=== PATIENT | female | born 1970 | race Hispanic/Latino ===

== ENCOUNTER 2023-06-26 15:25 | Emergency (ER) | payer OTHER, SELFPAY ==
[2023-06-26] MEDS ORDERED: Ketorolac Tromethamine 30 MG/ML VIAL ONE (18:05)
[2023-06-26] MEDS ORDERED: Dexameth. Sod Phosp. 10 MG/ML (CHEMO USE ONLY) ONE (18:10)
== END 2023-06-26 18:36 | disposition home or self-care (01) ==
LOC: ERS 15:25
DX: M54.31 Sciatica, right side (principal); F17.210 Nicotine dependence, cigarettes, uncomplicated
CPT/HCPCS: 96372; 99283; J1100; J1885

== ENCOUNTER 2023-12-22 06:51 | Emergency (ER) | payer OTHER | END 2023-12-22 09:05 | disposition home or self-care (01) | LOC: ERS 06:51 | DX: H66.92 Otitis media, unspecified, left ear (principal); B02.9 Zoster without complications; Z55.6 Problems related to health literacy | CPT/HCPCS: 99282 ==

== ENCOUNTER 2024-10-26 06:36 | Emergency (ER) | payer OTHER ==
[2024-10-26] MEDS ORDERED: Ondansetron ODT 4 MG TAB ONE (06:53)
[2024-10-26] MEDS ORDERED: predniSONE 20 MG TAB ONE (07:06)
== END 2024-10-26 07:46 | disposition home or self-care (01) ==
LOC: ERS 06:36
DX: B34.9 Viral infection, unspecified (principal)
CPT/HCPCS: 87428; 99283; J7512; Q0162